=== PATIENT | female | born 1965 | race American Indian/Alaskan Native ===

== ENCOUNTER 2019-06-26 06:57 | Emergency (ER) | payer SELFPAY ==
--- NOTE | 2019-06-26 09:04 | Emergency Department Report ---
Chief Complaint: Headache Stated Complaint: WEAK,HEADACHE,BODYACHE,VOMITING Time Seen by Provider: 06/26/19 07:53 - HPI History of Present Illness: This is a 53-year-old female with no prior medical history who presents to ED complaining constant aching frontal 5 out of 10 headache and body aches for the past 4 days. Patient states that she's been taking Advil with no relief. Patient does state that she feels like her nose is a bit stuffy. Patient also states that she does not have any dizziness, blurred vision, fever, chills, nausea or vomiting or abdominal pain - ROS Review of Systems: As noted in HPI - Exam Vital Signs: Vital Signs 06/26/19 07:12 Temperature 98.5 F Pulse Rate 56 L Respiratory 18 Rate Blood Pressure 139/64 O2 Sat by Pulse 92 Oximetry Physical Exam: Head is normal, atraumatic. Nontender to palpation, NECK: No spinal tenderness, no no rigidity ENT: Mild maxillary sinus tenderness, MSE screening note: Focused history and physical exam performed. Due to findings the following was ordered: ED Medical Decision Making - Medical Decision Making This 53-year-old female who presented for a nonmedical emergency. Patient presented with a headache attributed to medication. Patient did not exhibit any dizziness blurred vision or visual disturbances. I discussed the patient to use a nasal decongestion. Vital signs are normal patient is in no acute or received her distress. Patient did not exhibit any neurological deficit. Subsequent follow-up with primary care physician. ED Disposition for MSE Clinical Impression: Sinus headache Disposition: Z- MED SCREENING EXAM-LEFT Is pt being admited?: No Does the pt Need Aspirin: No Condition: Stable Instructions: Acute Headache (ED), Analgesic/Decongestant (By mouth) Additional Instructions: Continue to take your medication as needed. Follow-up primary care physician. Resources given. Finally if you start to have any new or worsening symptoms procedure to the ED Prescriptions: Butalb/Acetaminophen/Caffeine [Fioricet 50-300-40 mg CAP] 1 cap PO Q8HR #20 cap Referrals: GIRMA ALMAZAN MD [Primary Care Provider] - 3-5 Days ISIDRA SMALL MD [Staff Physician] - 3-[address] [facility] [Outside] - 3-5 Days [facility] [Outside] - 3-5 Days Forms: Work/School Release Form(ED) Time of Disposition: 09:10
[2019-06-26 09:24] VITALS: BP 140/70
== END 2019-06-26 09:23 | disposition left against medical advice (07) ==
LOC: ED 06:57
DX: R51 Headache (principal)
CPT/HCPCS: 99282

== ENCOUNTER 2020-03-16 12:30 | Emergency (ER) | payer SELFPAY ==
[2020-03-16] MEDS ORDERED: HYDROcodone/ACETAMINOPHEN 5-325 MG TAB ONE (20:07)
== END 2020-03-16 21:20 | disposition home or self-care (01) ==
LOC: ED 12:30
DX: K08.89 Other specified disorders of teeth and supporting structures (principal); Z53.21 Procedure and treatment not carried out due to patient leaving prior to being seen by health care provider

== ENCOUNTER 2021-11-01 12:00 | Emergency (ER) | payer SELFPAY ==
--- NOTE | 2021-11-01 16:08 | Emergency Department Report ---
ED ENT HPI - General Chief complaint: Dental/Oral Stated complaint: RT FACIAL PAIN/TOOTH ACHE/EAR PAIN Time Seen by Provider: 11/01/21 15:22 Source: patient Mode of arrival: Ambulatory Limitations: No Limitations - History of Present Illness Initial comments: The patient is a 56-year-old female who presents to ED complaining pain in the right side of his mouth x 4 days . Patient states that the pain started 5 days ago and has increased in severity over the last 2-3 days. The pain is exacerbated by eating and opening of the mouth. Patient states that she has an appointment with her dentist next week but she is in too much pain and could not wait that long so she came into the ED for evaluation. Patient states that it radiates towards ear. Patient describes a as a throbbing, pressure-like sensation. Patient states otherwise well and has no other complaints. Patient has had no fevers and no chills. No chest pain, no shortness of breath. No abdominal pain. No shortness of breath or recent trauma to the face. MD complaint: tooth pain - Related Data Previous Rx's Medication Instructions Recorded Last Taken Type Butalb/Acetaminophen/Caffeine 1 cap PO Q8HR #20 cap 06/26/19 Unknown Rx [Fioricet 50-300-40 mg CAP] Acetaminophen/Codeine [Tylenol 1 tab PO Q6H PRN #12 tab 10/05/19 Unknown Rx /Codeine # 3 tab] Amoxicillin [Trimox CAP] 500 mg PO Q8H #30 capsule 10/05/19 Unknown Rx Acetaminophen/Codeine [Tylenol 1 tab PO Q6H PRN #12 tab 11/01/21 Unknown Rx /Codeine # 3 tab] Clindamycin [Clindamycin CAP] 300 mg PO Q8H #15 cap 11/01/21 Unknown Rx Allergies Allergy/AdvReac Type Severity Reaction Status Date / Time tramadol Allergy Unknown Verified 06/26/19 07:08 ED Dental HPI - General Chief complaint: Dental/Oral Stated complaint: RT FACIAL PAIN/TOOTH ACHE/EAR PAIN Time Seen by Provider: 11/01/21 15:22 Source: patient Mode of arrival: Ambulatory Limitations: No Limitations - Related Data Previous Rx's Medication Instructions Recorded Last Taken Type Butalb/Acetaminophen/Caffeine 1 cap PO Q8HR #20 cap 06/26/19 Unknown Rx [Fioricet 50-300-40 mg CAP] Acetaminophen/Codeine [Tylenol 1 tab PO Q6H PRN #12 tab 10/05/19 Unknown Rx /Codeine # 3 tab] Amoxicillin [Trimox CAP] 500 mg PO Q8H #30 capsule 10/05/19 Unknown Rx Acetaminophen/Codeine [Tylenol 1 tab PO Q6H PRN #12 tab 11/01/21 Unknown Rx /Codeine # 3 tab] Clindamycin [Clindamycin CAP] 300 mg PO Q8H #15 cap 11/01/21 Unknown Rx Allergies Allergy/AdvReac Type Severity Reaction Status Date / Time tramadol Allergy Unknown Verified 06/26/19 07:08 ED Review of Systems ROS: Stated complaint: RT FACIAL PAIN/TOOTH ACHE/EAR PAIN Other details as noted in HPI Comment: All other systems reviewed and negative ED Past Medical Hx - Past Medical History Previous Medical History?: No Additional medical history: bradycardia - Surgical History Additional Surgical History: c section cyst removed from WRIST and elbow. - Social History Smoking Status: Never Smoker - Medications Home Medications: Home Medications Medication Instructions Recorded Confirmed Last Taken Type Butalb/Acetaminophen/Caffeine 1 cap PO Q8HR #20 cap 06/26/19 Unknown Rx [Fioricet 50-300-40 mg CAP] Acetaminophen/Codeine [Tylenol 1 tab PO Q6H PRN #12 tab 10/05/19 Unknown Rx /Codeine # 3 tab] Amoxicillin [Trimox CAP] 500 mg PO Q8H #30 capsule 10/05/19 Unknown Rx Acetaminophen/Codeine [Tylenol 1 tab PO Q6H PRN #12 tab 11/01/21 Unknown Rx /Codeine # 3 tab] Clindamycin [Clindamycin CAP] 300 mg PO Q8H #15 cap 11/01/21 Unknown Rx ED Physical Exam - General Limitations: No Limitations General appearance: alert, in no apparent distress - Head Head exam: Present: atraumatic, normocephalic - Eye Eye exam: Present: normal appearance, PERRL - ENT ENT exam: Present: mucous membranes moist, TM's normal bilaterally - Expanded ENT Exam Expanded Ear exam: Present: normal external inspection Mouth exam: Present: normal external inspection. Absent: drooling Teeth exam: Present: dental caries, dental tenderness #. Absent: gingival enlargement 1 - Dental Tenderness Throat exam: Positive: normal inspection - Neck Neck exam: Present: normal inspection, full ROM. Absent: tenderness, lymphadenopathy - Respiratory Respiratory exam: Present: normal lung sounds bilaterally. Absent: respiratory distress - Cardiovascular Cardiovascular Exam: Present: regular rate, normal rhythm. Absent: systolic murmur, diastolic murmur, rubs, gallop - GI/Abdominal GI/Abdominal exam: Present: soft, normal bowel sounds - Extremities Exam Extremities exam: Present: normal inspection - Back Exam Back exam: Present: normal inspection - Neurological Exam Neurological exam: Present: alert, oriented X3 - Psychiatric Psychiatric exam: Present: normal affect, normal mood - Skin Skin exam: Present: warm, dry, intact, normal color. Absent: rash ED Course Vital Signs 11/01/21 12:52 Temperature 97.8 F Pulse Rate 43 L Respiratory 16 Rate Blood Pressure 226/69 O2 Sat by Pulse 97 Oximetry ED Medical Decision Making - Medical Decision Making 56-year-old female who presents with right-sided Facial pain secondary to odontogenic caries ED course: Odontogenic infection versus ear infection. Based upon history and physical examination, pain is a result of an infection of tooth number 4 and that the pain Pt feels on the right side of his face and towards the ear is referred pain from this infectious process. Pt has no evidence of acute impending airway compromise. At this point, patient will be discharged home on some antibiotics and pain trial, she will do well with an outpatient course of antibiotics. Follow up with the Dental Clinic as referred Vital signs are normal patient is in no acute distress. Pt had an effect uneventful ED stay Critical care attestation.: If time is entered above; I have spent that time in minutes in the direct care of this critically ill patient, excluding procedure time. ED Disposition Clinical Impression: Pain, dental, Dental caries Disposition: 01 HOME / SELF CARE / HOMELESS Is pt being admited?: No Does the pt Need Aspirin: No Condition: Stable Instructions: Preventive Dental Care, Adult, Dental Extraction, [id number] Additional Instructions: Make sure to follow up with the dentist as discussed. Take all your medications as you've been prescribed. If you have any worsening symptoms or develop new symptoms please return to ED immediately. Referrals: [facility] [Outside] - 3-5 Days Forms: Accompanied Note, Work/School Release Form(ED) Time of Disposition: 16:08
[2021-11-01 16:39] VITALS: BP 166/78
== END 2021-11-01 16:37 | disposition home or self-care (01) ==
LOC: ED 12:00
DX: K02.9 Dental caries, unspecified (principal); Z98.890 Other specified postprocedural states; Z88.8 Allergy status to other drugs, medicaments and biological substances; Z79.899 Other long term (current) drug therapy
CPT/HCPCS: 99282